=== PATIENT | female | born 1995 | race Asian ===

== ENCOUNTER 2018-02-16 08:11 | Emergency (ER) | payer OTHER ==
[2018-02-16 08:23] VITALS: BP 143/96
[2018-02-16] MEDS ORDERED: DIPHENHYDRAMINE HCL 50 MG CAPSULE PO ONE (09:03)
[2018-02-16] MEDS ORDERED: PREDNISONE 20 MG TABLET PO ONE (09:03)
[2018-02-16] MEDS ORDERED: FAMOTIDINE 20 MG TABLET PO ONE (09:03)
--- NOTE | 2018-02-16 09:05 | ER Document Report ---
HPI - HPI Patient complains to provider of: Skin rash Onset: This morning Onset/Duration: Gradual Quality of pain: No pain Pain Level: Denies Context: Patient presents complaining of pruritic skin rash that she noticed to her extremities and trunk. Patient denies any new foods medications or detergents. Associated Symptoms: Other - Skin rash Exacerbated by: Denies Relieved by: Denies Similar symptoms previously: No Recently seen / treated by doctor: No - ROS ROS below otherwise negative: Yes Systems Reviewed and Negative: Yes All other systems reviewed and negative - CONSTITUTIONAL Constitutional: DENIES: Fever - RESPIRATORY Respiratory: DENIES: Trouble Breathing, Coughing - GASTROINTESTINAL Gastrointestinal: DENIES: Nausea, Patient vomiting - DERM Skin Color: Normal Skin Problems: Rash Past Medical History - General Information source: Patient - Social History Smoking Status: Never Smoker Chew tobacco use (# tins/day): No Frequency of alcohol use: Rare Drug Abuse: None Occupation: None Lives with: Spouse/Significant other Family History: Reviewed & Not Pertinent Patient has suicidal ideation: No Patient has homicidal ideation: No - Medical History Medical History: Negative Renal/ Medical History: Denies: Hx Peritoneal Dialysis Surgical Hx: Negative Vertical Provider Document - CONSTITUTIONAL Agree With Documented VS: Yes Exam Limitations: No Limitations General Appearance: WD/WN, No Apparent Distress - HEENT HEENT: Atraumatic, Normal ENT Exam, Normocephalic - NECK Neck: Normal Inspection, Supple - RESPIRATORY Respiratory: Breath Sounds Normal, No Respiratory Distress - CARDIOVASCULAR Cardiovascular: Regular Rate, Regular Rhythm - GI/ABDOMEN Gastrointestinal: Abdomen Soft - BACK Back: Normal Inspection - MUSCULOSKELETAL/EXTREMETIES Musculoskeletal/Extremeties: MAEW, FROM - NEURO Level of Consciousness: Awake, Alert, Appropriate Motor/Sensory: No Motor Deficit - DERM Integumentary: Warm, Dry, Rash - Erythematous urticarial rash to trunk and extremities Course - Vital Signs Vital signs: Temp Pulse Resp BP Pulse Ox 98.7 F 95 18 143/96 H 99 02/16/18 08:21 02/16/18 08:21 02/16/18 08:21 02/16/18 08:21 02/16/18 08:21 Discharge - Discharge Clinical Impression: Urticaria Condition: Stable Disposition: HOME, SELF-CARE Instructions: Acute Urticaria ([facility]), Use of Diphenhydramine, Steroid Medication Additional Instructions: Return immediately for any new or worsening symptoms Followup with your primary care provider, call tomorrow to make a followup appointment Prescriptions: Famotidine [Pepcid 20 mg Tablet] 20 mg PO BID #12 tablet Prednisone [Deltasone 20 mg Tablet] 3 tab PO DAILY 4 Days tablet Referrals: JESSICA FERNANDO MD [Primary Care Provider] - Follow up as needed
== END 2018-02-16 09:29 | disposition home or self-care (01) ==
LOC: ER 08:11
DX: L50.9 Urticaria, unspecified (principal)
CPT/HCPCS: 99282; J7512